=== PATIENT | male | born 1975 | race Caucasian/White ===

== ENCOUNTER 2016-11-30 06:25 | Emergency (ER) | payer OTHER ==
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
--- NOTE | 2016-12-04 22:04 | ED MED RECONCILIATION SUMMARY ---
Patient: LUCY MIDDLETON Medication Reconciliation Report [facility] VisitID: [id number] [address] [place] [address] 41y, M Registration Date/Time: 11/30/2016 Weight: 140.6 kg Height/Length: 76 in. BMI: 37.7 ALLERGIES: No Known Drug Allergy The patient's Home Medications are listed below: NONE. The source(s) of the original Home Medication information: patient The following Medications were given to the patient in the Emergency Department: None. The following Medications were prescribed to the patient: None.
--- NOTE | 2016-12-04 22:04 | ED MED RECONCILIATION SUMMARY ---
Patient: LUCY MIDDLETON Medication Reconciliation Report [facility] VisitID: [id number] [address] [place] [address] 41y, M Registration Date/Time: 11/30/2016 Weight: 140.6 kg Height/Length: 76 in. BMI: 37.7 ALLERGIES: No Known Drug Allergy The patient's Home Medications are listed below: NONE. The source(s) of the original Home Medication information: patient The following Medications were given to the patient in the Emergency Department: None. The following Medications were prescribed to the patient: None.
--- NOTE | 2016-12-04 22:04 | ED DISCHARGE INSTRUCTIONS ---
Patient: LUCY MIDDLETON General Instructions [facility] VisitID: [id number] [place] [address] 41y, M Registration Date/Time: 11/30/2016 Acute tension headache. Electrical injury from direct contact with industrial source. INSTRUCTIONS Warnings: GENERAL WARNINGS: Return or contact your physician immediately if your condition worsens or changes unexpectedly, if not improving as expected, or if other problems arise. Follow-up: Follow up with your doctor as needed. Understanding of the discharge instructions verbalized by patient. ADDITIONAL INFORMATION Headache [Unspecified] The cause of your headache today is not clear, but it does not appear to be the sign of any serious illness. Under stress, some people tense the muscles of their shoulder, neck and scalp without knowing it. If this condition lasts long enough, a TENSION HEADACHE can occur. A MIGRAINE HEADACHE is caused by changes in blood flow to the brain. A migraine attack may be triggered by emotional stress, hormone changes during the menstrual cycle, oral contraceptives, alcohol use, certain foods containing tyramine, eye strain, weather changes, missing meals, lack of sleep or oversleeping. Other causes of headache include a viral illness with high fever, head injury with concussion, sinus, ear or throat infection, dental pain and TMJ (jaw joint) pain. More serious but less common causes of headache include stroke, brain hemorrhage, brain tumor, meningitis and encephalitis. Home Care: If you were given pain medicine for this headache, do not drive yourself home. Arrange for a ride, instead. When you get home, try to sleep. You should feel much better when you wake up. Apply heat to the back of your neck to relieve neck muscle spasm. Migraine headaches may respond best to an ice pack on the forehead or at the base of the skull. If you are having nausea or vomiting, follow a light diet until your headache is relieved. If you have a migraine type headache, use sunglasses when in the daylight or around bright indoor lighting until symptoms improve. Bright glaring light can worsen this kind of headache. Follow Up with your doctor if the headache is not better within the next 24 hours. If you have frequent headaches you should discuss a treatment plan with your primary care doctor. By being aware of the earliest signs of headache, and starting treatment right away, you may be able to stop the pain yourself. Get Prompt Medical Attention if any of the following occur: Worsening of your head pain or no improvement within 24 hours Repeated vomiting (unable to keep liquids down) Fever of 100.4F (38C) or higher, or as directed by your healthcare provider Stiff neck Extreme drowsiness, confusion or fainting Dizziness, vertigo (dizziness with spinning sensation) Weakness of an arm or leg or one side of the face Difficulty with speech or vision Electrical Injury The effect of an electrical shock depends on the type of current (AC or DC), the voltage and the path of the current through your body. The effect may be minor or severe and range from a brief tingling pain, to a shallow flash burn, to deeper wahl of the skin and muscle. It is not always possible to locksmith helper the extent of an electrical injury from the initial appearance of the burn. The electricity can also cause internal damage to nerves, muscles, bones and even the heart and brain as it passes through the body. Tests will be done to look for internal injury. Sometimes the signs of this damage may not be apparent for the first few days, so watch for the signs below. Minor wahl are treated with topical antibiotic ointment and dressings. More severe wahl may require surgery or skin grafting. Home Care: Wahl Rest the injured part until the soreness is gone. Unless told otherwise, change your dressing once a day. Soak the dressing in warm water if it sticks. Wash the area with soap and water and look for signs of infection. Reapply cream or ointment and bandage as advised. You may use acetaminophen (Tylenol) or ibuprofen (Motrin, Advil) to control pain, unless another pain medicine was prescribed. [ NOTE : If you have chronic liver or kidney disease or ever had a stomach ulcer or GI bleeding, talk with your doctor before using these medicines.] Prevention: Use outlet covers to protect infants from electrical outlets. In young children, most electrical injuries are from playing with power cords that are broken or cracked. Inspect power/extension cords. Replace if there is damage. Teach children not to play with power cords. Older children and teens should be aware of the danger of high-power systems. Most injuries occur while climbing on power towers, or playing near transformers or electrified train rails. Adults should always check that the power is turned off before working on electrical circuits. Do not stand on wet areas when working with electrical systems. If you have 2-prong (ungrounded) outlets in your home, upgrade to grounded (3-prong) systems. Replace outlets near any water (sink, tub) with fused (GFCI) outlets. Follow Up: Most electrical wahl heal without infection, but occasionally an infection may occur. Check the wound daily for the signs of infection. These include fever, increasing redness, swelling, or pain in the wound, or pus coming from the wound. Get Prompt Medical Attention if any of the following occur: Increasing pain in the area of injury Increasing redness, swelling, or pus coming from the wound Fever of 100.4F (38C) or higher, or as directed by your healthcare provider Increasing size of the burned area Increasing muscle pain or soreness with movement Dark colored urine during the next 24 hours You have been given the following additional information: Headache, Unspecified Electrical Injury (Electronically signed by Fabby Arana MD 12/04/2016 22:03)
--- NOTE | 2016-12-04 22:04 | ED MAR SUMMARY ---
..... Medication Administration Record Located Within [facility] [address] [place], [place] [id number] Patient: LUCY MIDDLETON Visit ID: [id number] 41y, M Weight: 140.6 kg Height/Length: 76 in BMI: 37.7 ALLERGIES: No Known Drug Allergy
--- NOTE | 2016-12-04 22:04 | ED MAR SUMMARY ---
..... Medication Administration Record [facility] [address] [place], [place] [id number] Patient: LUCY MIDDLETON Visit ID: [id number] 41y, M Weight: 140.6 kg Height/Length: 76 in BMI: 37.7 ALLERGIES: No Known Drug Allergy
== END 2016-11-30 07:37 | disposition home or self-care (01) ==
LOC: ED SRH 06:25
DX: T75.4XXA Electrocution, initial encounter (principal); G44.209 Tension-type headache, unspecified, not intractable; W86.1XXA Exposure to industrial wiring, appliances and electrical machinery, initial encounter; Y92.69 Other specified industrial and construction area as the place of occurrence of the external cause; Y99.0 Civilian activity done for income or pay